=== PATIENT | female | born 2000 | race Asian ===

== ENCOUNTER 2019-05-28 18:58 | Emergency (ER) | payer OTHER ==
[~2019-05-28] VITALS: Ht 152.4 cm; Wt 45.5 kg
[~2019-05-28 18:58] MED LIST: NO MEDS
[2019-05-28 20:04] VITALS: BP 115/66
== END 2019-05-28 20:06 | disposition home or self-care (01) ==
LOC: EMS 19:01
DX: S00.552A Superficial foreign body of oral cavity, initial encounter (principal); X58.XXXA Exposure to other specified factors, initial encounter; Y93.89 Activity, other specified; Y92.89 Other specified places as the place of occurrence of the external cause; Y99.8 Other external cause status

== ENCOUNTER 2020-12-31 16:43 | Emergency (ER) | payer OTHER ==
[~2020-12-31] VITALS: Ht 154.9 cm; Wt 49.5 kg
[2020-12-31 16:46] VITALS: BP 131/102
== END 2020-12-31 20:18 | disposition left against medical advice (07) ==
LOC: EMS 16:46
DX: R10.30 Lower abdominal pain, unspecified (principal); Z53.21 Procedure and treatment not carried out due to patient leaving prior to being seen by health care provider